=== PATIENT | male | born 2000 | race African-American/Black ===

== ENCOUNTER 2021-09-07 20:53 | Emergency (ER) | payer OTHER, SELFPAY ==
[2021-09-07 21:00] VITALS: BP 156/80; PULSE 98; RESP 18; TEMP 36.9; O2SAT 100
[2021-09-07 21:07] VITALS: BP 156/80; PULSE 98; RESP 18; TEMP 36.9; O2SAT 100
--- NOTE | 2021-09-07 22:35 | PC.NURSE ---
called to place in room and not in waiting area. Waited 15 more minutes and still not in waiting area.
== END 2021-09-07 22:55 | disposition left against medical advice (07) ==
LOC: ANHED 22:55
DX: Z53.21 Procedure and treatment not carried out due to patient leaving prior to being seen by health care provider (principal)
CPT/HCPCS: 99199